=== PATIENT | male | born 1980 | race Caucasian/White ===

== ENCOUNTER → 2021-02-13 | Outpatient (CLI) | payer OTHER ==
[~2021-02-13] MED LIST: LISI10TA16 PO; OXYC-325 PO; PANT40TA77 PO
== END ==
LOC: LAB 13:33
PROVIDERS: ATTEND Surgery
DX: Z01.812 Encounter for preprocedural laboratory examination (principal); Z20.822 Contact with and (suspected) exposure to COVID-19; K43.9 Ventral hernia without obstruction or gangrene
CPT/HCPCS: U0003; U0005

== ENCOUNTER 2021-02-17 12:02 | Day surgery (SDC) | payer OTHER ==
[~2021-02-17] VITALS: Ht 175.3 cm; Wt 92.0 kg
[~2021-02-17 12:02] MED LIST changes: +ACETAMINOPHEN 500 MG TABLET PO PRN; +BUPIVACAINE-EPI 0.25%-1:200000 MPF 30 ML VIAL. ONE; +HYDROmorphone 2 MG/ML VIAL IVP PRN; +IV RINGERS,LACTATED 1000ML 1,000 ML IV SCH; +MINERAL OIL for SURGERY 10 ML VIAL. MC ONE; -OXYC-325 PO; +fentaNYL PF VIAL 100 MCG/2 ML VIAL IVP PRN
[2021-02-17] MEDS ORDERED: ROCURONIUM 50 MG/5 ML VIAL. ONE (12:39)
[2021-02-17] MEDS ORDERED: SUCCINYLCHOLINE 200 MG/10 ML VIAL. ONE (12:39)
[2021-02-17] MEDS ORDERED: fentaNYL PF VIAL 100 MCG/2 ML VIAL ONE ×3 (12:41→14:52)
[2021-02-17] MEDS ORDERED: KETAMINE HCL IN NACL, ISO-OSM 50 MG/5 ML SYRINGE ONE (13:38)
[2021-02-17] MEDS ORDERED: DEXAMETHASONE SOD PHOS 4 MG/ML VIAL ONE (13:43)
[2021-02-17] MEDS ORDERED: ONDANSETRON PF 4 MG/2 ML VIAL. ONE (13:43)
[2021-02-17] MEDS ORDERED: BUPIVACAINE-EPI 0.25%-1:200000 MPF 30 ML VIAL. INJ ONE (14:03)
[2021-02-17] MEDS ORDERED: NEOSTIGMINE METHYLSULFATE 5 MG/5 ML SYRINGE. ONE (14:17)
[2021-02-17] MEDS ORDERED: GLYCOPYRROLATE 1 MG/5 ML VIAL. ONE (14:17)
--- NOTE | 2021-02-17 14:19 | PDOC4 ---
Operative Note Operative Note Date: February 17, 2021 at 1416 Preoperative diagnosis: Ventral hernia Postoperative diagnosis: Ventral hernia x2 Procedure: Robotic assisted laparoscopic ventral hernia repair with mesh Surgeon: Jose Specimen: None Dictation: Patient is a 40-year-old male who complains of a painful bulge at the umbilicus and [address] scan was performed which showed 2 small ventral hernias. Procedure of robotic assisted laparoscopic ventral hernia repair with mesh was explained to the patient detail was benefits were also discussed including bleeding infection injury to intra-abdominal contents possible necessitating further open operations alternatives to this procedure also discussed with patient who seemed to understand and gave a verbal written consent to have procedure performed. Patient was taken to the operating room placed in the supine position general anesthesia was initiated once patient was sleeping intubated his abdomen was prepped and draped usual sterile fashion using ChloraPrep. Area in the left upper quadrant was injected quarter percent Marcaine with epinephrine incision was made with a blade scalpel and a 5 mm Visiport was placed under direct visualization of the abdomen creating pneumoperitoneum once this was complete 5 mm camera is placed within the abdomen which was inspected no other abnormalities were noted a 8 mm da Demi port was placed in the left midabdomen and a millimeter da Demi port was placed left lower abdomen and the 5 mm Visiport was changed out for 8 mm da Demi port. The da Demi robot is brought and docked all port sites surgeon went to the robotic console using a grasper and Endo Radha scissors the preperitoneal fat was taken down exposing the 2 hernias. Hernias were closed with a running 2 OV lock nonabsorbable suture the hernias were within 1 cm of each other. A ventral light ST mesh was then placed over the hernia defect this was sewn into place circumferentially with 2 OV lock absorbable suture. Preperitoneal fat was closed over the mesh with a running 2 OV lock absorbable suture. Sutures removed from the abdomen the da Demi robot was undocked from all port sites all ports were removed the pneumoperitoneum was reduced all port sites were closed with 4 subcuticular Monocryl Mastisol Steri-Strips and island dressings were applied. Patient was awakened extubated in the operating room taken to recovery in stable condition all sponge instrument needle counts listed as correct estimated blood loss 5 mL. CHECO VACA MD Feb 17, 2021 14:19
[2021-02-17] MEDS ORDERED: OXYC-325 PO (14:21)
--- NOTE | 2021-02-17 14:22 | DISCH ---
DISCHARGE INSTRUCTIONS Condition on Discharge Condition on Discharge: Stable Activity After Discharge Activity Instructions for Disc: Avoid exertion Other activity instructions: No lifting more than 20 pounds for 2 weeks Diet after Discharge Diet after Discharge: Regular Wound Incision Care Other wound/incision instructi: Perlita shower in 24 hours Contacting the DRDanie after DC Call your doctor for: If your condition worsens Follow-Up Follow up with: Dr. Vaca in 2 weeks CHECO VACA MD Feb 17, 2021 14:22
[2021-02-17] MEDS ORDERED: oxyCODONE/APAP 5/325 1 TAB TABLET PO ONE ×2 (14:45)
[2021-02-17] MEDS ORDERED: MORPHINE SULFATE 2 MG/ML INJ. ONE (14:46)
[2021-02-17] MEDS: MORPHINE SULFATE 2 MG/ML INJ. IVP PRN ×2 (14:49→15:00)
[2021-02-17] MEDS ORDERED: PROCHLORPERAZINE 10 MG/2 ML VIAL. ONE (14:52)
[2021-02-17] MEDS: PROCHLORPERAZINE 10 MG/2 ML VIAL. IVP PRN ×2 (14:55→15:08)
[2021-02-17] MEDS: fentaNYL PF VIAL 100 MCG/2 ML VIAL IVP PRN ×2 (14:55→15:08)
[2021-02-17 15:35] VITALS: BP 139/88
== END 2021-02-17 16:10 | disposition home or self-care (01) ==
LOC: SURG 12:02 → EDUNIT# 13:30 → SURG 16:10
PROVIDERS: ATTEND Surgery
DX: K43.9 Ventral hernia without obstruction or gangrene (principal); I10 Essential (primary) hypertension; K21.9 Gastro-esophageal reflux disease without esophagitis; Z98.890 Other specified postprocedural states; Z79.899 Other long term (current) drug therapy
CPT/HCPCS: 49652; A4364; A4930; A6219; C1781; J0330; J0690; J0780; J1100; J2270; J2405; J2710; J3010; J3490; S2900; A4657